=== PATIENT | female | born 1985 | race Caucasian/White ===

== ENCOUNTER 2017-06-11 17:30 | Inpatient (IN) | payer OTHER ==
[~2017-06-11] VITALS: Ht 165.1 cm; Wt 91.4 kg
--- NOTE | 2017-06-11 19:19 | HHI.HP ---
HPI Service Critical Care Medicine Primary Care Physician No Primary Care Physician Admission Diagnosis Diagnosis: (1) Fever Diagnosis: Principal (2) Cocaine abuse Diagnosis: Secondary (3) Tobacco abuse Diagnosis: Secondary (4) Abscess of lower back Diagnosis: Principal (5) IVDU (intravenous drug user) Diagnosis: Secondary (6) UTI (urinary tract infection) Diagnosis: Principal Travel History International Travel<30 Days: No Contact w/Intl Traveler <30 Da: No Traveled to Known Affected Are: No Sepsis Criteria SIRS Criteria (2 or more): Temp > 100.9 or < 96.8 Sepsis Criteria (SIRS+source): Infect source susp/known History of Present Illness 31 yo obese female with PMH of IVDU, prior tobacco abuse who is transferred from [facility] due to concern for epidural abscess. She states that about 6 months ago she began having back pain and had an abscess on her lower back. It continued to grow in size and become more painful so she sought medical attention in April 2017 where she was admitted for 4 weeks at [facility]. She states that she was bacteremic upon that admission and that "four different things grew out of my blood cultures". She states that there was an attempt to drain the abscess percutaneously in radiology but nothing was aspirated. (MRI report from [place] 04/29/17 states collection in subcutaneous fat posterior to spinous process of L1 measuring 2.4 cm in diameter. "It does not involve the spinous process or paraspinous musculature. This would be consistent with subcutaneous lesion within the fat". She states that the "aspiration needle" was sent for culture and "nothing grew out of that". She was hospitalized for 4 weeks and had a PICC line and was on vancomycin. She states PICC line was removed prior to discharge (however it was later discovered from outside hospital records that she eloped with PICC line in place and law enforcement was notified). She states since discharge she has been never really felt well and has had intermittent fevers. She states that about 5 days ago she was seen at [facility] and diagnosed with bacterial vaginosis and provided a prescription for Flagyl and possibly clindamycin. Four days ago she was began having difficulty with moving her legs and was requiring assistance from her to help her move her right leg and to go to the bathroom. She has had several episodes of urinary incontinence where she cannot feel the urge to urinate and cannot stop her urinary stream. No dysuria or flank pain. Denies fecal incontinence. She had a temperature of 103.6 yesterday. Per [place] records, she had left AMA and then presented again today with the above symptoms and has been transferred to [facility] [place] [place] for neurosurgical evaluation for possible epidural abscess. No labs or additional imaging sent from [place] aside from CXR. She denies headache, photophobia, neck pain or stiffness, n/v, diarrhea, CP, SOB. This history was obtained from the patient. Called [facility] for further information. U/a is abnormal. No recent urine cx at [place]. Requested additional records from [place] which indicated: Admitted 04/29/17 with suspected endocarditis and ?tricuspid valve lesion on TTE. Had MELANY 05/02 that was negative for vegetations. She had left AMA from several other hospitals that were treating her for endocarditis prior to that admission to [place]. Blood cultures + for MSSA treated initially with vanc, then with nafcillin. According to documentation of CT guided abscess aspiration, 1 cc of fluid was sent for culture. I do not see culture results in the paperwork I have so far. Patient was complaining of difficulty walking without assistance back in April as well. Review of Systems ROS Limitations: Other (not a reliable historian) Constitutional: COMPLAINS OF: Fever Musculoskeletal: COMPLAINS OF: Back pain, DENIES: Neck pain Neurologic: DENIES: Headache Past Family Social History Allergies: Coded Allergies: haloperidol (Verified Allergy, Severe, LOST MUSCLE CONTROL, 06/11/17) Past Medical History Hepatitis C bipolar disorder Past Surgical History section 2 Bilateral tubal ligation Percutaneous drainage of abscess in radiology in April 2017 removal of BB foreign body from foot in 2007 Reported Medications Flagyl ?Clindamycin... she is not sure. Started 1.5 days ago for "BV" Family History Mother with hypertension and "brain bleed" Father of complications of diabetes at unknown age Social History Prior history of IV drug use. She says she used to inject Dilaudid. She states she quit using IV drugs in April Prior UDS at [place] was positive for cocaine Quit smoking cigarettes 2 years ago after smoking for 12 years She used to drink alcohol but has not had a drink in about 6 years. She says she was never a daily drinker Physical Exam Physical Exam GENERAL: Well-nourished, well-developed patient who is laying in ISC bed in left lateral decubitus position. SKIN: Warm and dry. No rash HEAD: Atraumatic. Normocephalic. EYES: Pupils equal and round, 2 mm and reactive bilaterally.. No scleral icterus. No injection or drainage. ENT: No nasal bleeding or discharge. Mucous membranes pink and moist. NECK: Trachea midline. No JVD. CARDIOVASCULAR: Regular rate and rhythm. No murmurs rubs or gallops. RESPIRATORY: Breathing comfortably on room air with no accessory muscle use. Clear to auscultation. Breath sounds equal bilaterally. GASTROINTESTINAL: Abdomen soft, non-tender, nondistended. Bowel sounds present. MUSCULOSKELETAL: Extremities without clubbing, cyanosis, or edema. NEUROLOGICAL: There is palpable ~ 3cm mass to the right of approximately T12/L1 level. Skin is not erythematous, warm, fluctuant. Awake and alert, oriented.. No obvious cranial nerve deficits. She reports decreased sensation dorsum of right foot, overlying right tibia, and between 1sta and 2nd digit on the right foot. Intact sensation over thighs and torso. Strength 4/5 dorsiflexion of right first toe and dorsiflexion of right ankle. Does not cooperate with right ankle plantar flexion or hip flexion stating it is limited due to pain. Normal rectal tone. DTR 2+ patellar and achilles bilaterally. No abnormal response to Babinski. No clonus. Septic Shock Reassessment Septic shock perfusion: reassessment completed Caprini VTE Risk Assessment Caprini VTE Risk Assessment: Mod/High Risk (score >= 2) VTE Pharm Contraindication: Spinal surgery (possibly will require) Caprini Risk Assessment Model Point Value = 1 Point Value = 2 Point Value = 3 Point Value = 5 Age 41-60 Minor surgery BMI > 25 kg/m2 Swollen legs Varicose veins or History of unexplained or recurrent spontaneous Oral contraceptives or hormone replacement Sepsis (< 1 month) Serious lung disease, including pneumonia (< 1 month) Abnormal pulmonary function Acute myocardial infarction Congestive heart failure (< 1 month) History of inflammatory bowel disease Medical patient at bed rest Age 61-74 Arthroscopic surgery Major open surgery (> 45 min) Laparoscopic surgery (> 45 min) Malignancy Confined to bed (> 72 hours) Immobilizing plaster cast Central venous access Age >= 75 History of VTE Family history of VTE Factor V Leiden Prothrombin [id number] Lupus anticoagulant Anticardiolipin antibodies Elevated serum homocysteine Heparin-induced thrombocytopenia Other congenital or acquired thrombophilia Stroke (< 1 month) Elective arthroplasty Hip, pelvis, or leg fracture Acute spinal cord injury (< 1 month) Prophylaxis Regimen Total Risk Factor Score Risk Level Prophylaxis Regimen 0-1 Low Early ambulation 2 Moderate Order ONE of the following: *Sequential Compression Device (SCD) *Heparin 5000 units SQ BID 3-4 Higher Order ONE of the following medications: *Heparin 5000 units SQ TID *Enoxaparin/Lovenox 40 mg SQ daily (WT < 150 kg, CrCl > 30 mL/min) *Enoxaparin/Lovenox 30 mg SQ daily (WT < 150 kg, CrCl > 10-29 mL/min) *Enoxaparin/Lovenox 30 mg SQ BID (WT < 150 kg, CrCl > 30 mL/min) AND/OR *Sequential Compression Device (SCD) 5 or more Highest Order ONE of the following medications: *Heparin 5000 units SQ TID (Preferred with Epidurals) *Enoxaparin/Lovenox 40 mg SQ daily (WT < 150 kg, CrCl > 30 mL/min) *Enoxaparin/Lovenox 30 mg SQ daily (WT < 150 kg, CrCl > 10-29 mL/min) *Enoxaparin/Lovenox 30 mg SQ BID (WT < 150 kg, CrCl > 30 mL/min) AND *Sequential Compression Device (SCD) Assessment and Plan Problem List: (1) IVDU (intravenous drug user) ICD Code: F19.90 - Other psychoactive substance use, unspecified, uncomplicated Status: Chronic (2) Cocaine abuse ICD Code: F14.10 - Cocaine abuse, uncomplicated Status: Chronic (3) Abscess of lower back ICD Code: L02.212 - Cutaneous abscess of back [any part, except buttock] Status: Chronic (4) Fever ICD Code: R50.9 - Fever, unspecified Status: Acute (5) Tobacco abuse ICD Code: Z72.0 - Tobacco use Status: Chronic (6) UTI (urinary tract infection) ICD Code: N39.0 - Urinary tract infection, site not specified Status: Acute (7) Hypokalemia ICD Code: E87.6 - Hypokalemia Status: Acute Assessment and Plan NEURO: IVDU Cocaine abuse Abscess, subcutaneous, posterior to L1 Oxycodone/Dilaudid as needed for pain Stat MRI of Spine was obtained to evaluate for epidural abscess in view of apparent weakness on examination. MRI demonstrates enhancing collection or mass posterior to L1 without extension into the vertebra or epidural space. The location of the abscess does not explain her reported weakness and could be related to functional disorder. Neurosurgery to see for possible I and D versus reattempt percutaneous aspiration. RESP: Tobacco abuse Cessation counseling Albuterol every 2 hours as needed CV: Reported prior concern for tricuspid valve endocarditis. prior MELANY 05/02 was negative for vegetation Obtain 2D Echo GI: NPO FEN/RENAL: Hypokalemia Voiding. Urinary incontinence - likely secondary to UTI ID: ?UTI Empiric antibiotics were initiated on admission with cefepime and vancomycin due to concern for epidural abscess. U/a abnormal, urine culture pending. Infectious disease consultation. HEME: Obtain CBC. ENDO: Obtain BMP PROPH: SCDs and teds for DVT prophylaxis. Avoided pharmacologic DVT prophylaxis on admission due to w/u for possible epidural abscess and possible need for surgery. ACCESS: PIV currently. Would avoid invasive lines if at all possible. Full code Level 3 H&P Trina Prescott MD June 11, 2017 19:19
[2017-06-11] MEDS ORDERED: CHLORHEXIDINE GLUCONATE 2 % 1 PACK (2 CLOTHS) TOP PRN (19:45)
[2017-06-11] MEDS ORDERED: LACTULOSE SYRUP 20 GM/30 ML CUP PO PRN (19:45)
[2017-06-11] MEDS ORDERED: SODIUM CHLORIDE 0.9% FLUSH 10 ML FLUSH IV FLUSH PRN (19:45)
[2017-06-11] MEDS ORDERED: NURSING INFORMATION XX SCH (19:45)
[2017-06-11] MEDS ORDERED: MAGNESIUM HYDROXIDE SUSP 30 ML CUP PO PRN (19:45)
[2017-06-11] MEDS ORDERED: BISACODYL 10 MG SUPP RECTAL PRN (19:45)
[2017-06-11] MEDS ORDERED: ONDANSETRON HCL 4 MG/2 ML VIAL IV PUSH PRN (19:45)
[2017-06-11] MEDS ORDERED: oxyCODONE/ACETAMINOPHEN 5 MG/325 MG TAB PO PRN (19:45)
[2017-06-11] MEDS ORDERED: HYDROmorphone HCL PF 1 MG/ML VIAL IV PUSH PRN ×2 (19:45)
[2017-06-11] MEDS ORDERED: SENNOSIDES 8.6 MG TAB PO PRN (19:45)
[2017-06-11 20:00] VITALS: BP 101/58; PULSE 66; RESP 26; TEMP 99; O2SAT 99
[2017-06-11] MEDS: HYDROmorphone HCL PF 2 MG/ML VIAL IV PRN ×2 (20:04→23:10)
[2017-06-11] MEDS ORDERED: Vancomycin Consult Pharmacy 1 EA OTHER SCH (20:30)
[2017-06-11 20:45] LABS: BACTERIA, URINE RARE /hpf; BILIRUBIN, URINE NEG (NEG); BLOOD, URINE NEG (NEG); GLUCOSE,URINE NEG (NEG); KETONE, URINE TRACE mg/dL (NEG); NITRITE,URINE POS (NEG); PH, URINE 7.5 (5.0-8.5); SQUAMOUS EPITHELIAL CELL URINE 6 /hpf (0-5); URINE COLOR LIGHT-YELLOW (YELLW/STRAW); URINE LEUKOCYTE ESTERASE LARGE (NEG)
[2017-06-11] MEDS: DOCUSATE SODIUM 50 MG/SENNA 8.6 MG TAB PO SCH (21:00)
[2017-06-11] MEDS: SODIUM CHLORIDE 0.9% FLUSH 10 ML FLUSH IV FLUSH SCH (21:00)
[2017-06-11] MEDS: FAMOTIDINE 20 MG TAB PO SCH (21:00)
[2017-06-11] MEDS ORDERED: GADODIAMIDE PF 287 MG/ML 20 ML VIAL (for RAD MRI) IVCONTRAST ONE (21:45)
[2017-06-11 22:00] VITALS: PULSE 66
[2017-06-11] MEDS: CEFEPIME INJ 2,000 MG in SODIUM CHLORIDE 0.9% INJ 100 ML IV SCH (22:00)
[2017-06-11] MEDS ORDERED: VANCOMYCIN INJ 2,000 MG in SODIUM CHLORID 0.9% 500 ML INJ 500 ML IV ONE (22:00)
--- NOTE | 2017-06-11 22:10 | RADRPT ---
EXAM DATE/TIME: 06/11/2017 20:58 [facility] COMPARISON: No previous studies available for comparison. INDICATIONS : Abscess. CONTRAST: 18 cc Omniscan (gadodiamide) IV MEDICAL HISTORY : Seizures. Myocardial infarction. Endocarditis. SURGICAL HISTORY : Tubal ligation. section. ENCOUNTER: Initial ACUITY: 4-6 days PAIN SCORE: 6/10 LOCATION: Par[facility]inal TECHNIQUE: Multiplanar multisequence MRI of the thoracic spine was performed. FINDINGS: VERTEBRA: Normal vertebral body height. Homogeneous marrow signal. ALIGNMENT: Normal. CORD: Normal position and configuration. POST CONTRAST: There is a small enhancing collection or mass directly posterior to the spinous process of L1 within the deep subcutaneous tissues measuring 2.2 x 2.2 x 3.0 cm. T1-T2: Normal. T2-T3: The thecal sac has a normal diameter. No evidence of disc bulge or protrusion. T3-T4: The thecal sac has a normal diameter. No evidence of disc bulge or protrusion. T4-T5: The thecal sac has a normal diameter. No evidence of disc bulge or protrusion. T5-T6: The thecal sac has a normal diameter. No evidence of disc bulge or protrusion. T6-T7: The thecal sac has a normal diameter. No evidence of disc bulge or protrusion. T7-T8: The thecal sac has a normal diameter. No evidence of disc bulge or protrusion. T8-T9: The thecal sac has a normal diameter. No evidence of disc bulge or protrusion. T9-T10: The thecal sac has a normal diameter. No evidence of disc bulge or protrusion. T10-T11: The thecal sac has a normal diameter. No evidence of disc bulge or protrusion. T11-T12: The thecal sac has a normal diameter. No evidence of disc bulge or protrusion. T12-L1: The thecal sac has a normal diameter. No evidence of disc bulge or protrusion. CONCLUSION: Small enhancing collection or mass directly posterior to the spinous process of L1 within the deep galicia bcutaneous tissues measuring 2.2 x 2.2 x 3.0 cm. Robel Gregorio MD on June 11, 2017 at 22:00 Board Certified Radiologist. This report was verified electronically.
--- NOTE | 2017-06-11 23:14 | RADRPT ---
EXAM DATE/TIME: 06/11/2017 20:58 [facility] COMPARISON: No previous studies available for comparison. INDICATIONS : Abscess. CONTRAST: 18 cc Omniscan (gadodiamide) IV MEDICAL HISTORY : Seizures. Myocardial infarction. Endocarditis. SURGICAL HISTORY : Tubal ligation. section. ENCOUNTER: Initial ACUITY: 4-6 days PAIN SCORE: 6/10 LOCATION: Paraspinal TECHNIQUE: Multiplanar multisequence MRI of the lumbar spine was performed with and without contrast. FINDINGS: The most caudal appearing lumbar vertebra is numbered as L5. VERTEBRAE: Homogeneous signal. Normal alignment. CONUS: Normal level and configuration. POST CONTRAST: There is a small enhancing collection or mass directly posterior to the spinous process of L1 within the deep subcutaneous tissues measuring 2.2 x 2.2 x 2.0 cm. T12-L1: The thecal sac has a normal diameter. No evidence of disc bulge or protrusion. The neural foramina are patent bilaterally. L1-L2: The thecal sac has a normal diameter. No evidence of disc bulge or protrusion. The neural foramina are patent bilaterally. L2-L3: The thecal sac has a normal diameter. No evidence of disc bulge or protrusion. The neural foramina are patent bilaterally. L3-L4: The thecal sac has a normal diameter. No evidence of disc bulge or protrusion. The neural foramina are patent bilaterally. L4-L5: The thecal sac has a normal diameter. No evidence of disc bulge or protrusion. The neural foramina are patent bilaterally. L5-L6: Loss of disc height and signal are noted. Diffuse disc osteophyte complex and facet joint hypertrophy are noted resulting in moderate bilateral foraminal narrowing but no spinal stenosis. No focal disc herniation is noted. L6-S1: Loss of disc height and signal are noted. No spinal stenosis or neuroforaminal narrowing is noted. No focal disc herniation is noted. CONCLUSION: 1. Small enhancing collection or mass directly posterior to the spinous process of L1 within the deep subcutaneous tissues measuring 2.2 x 2.2 x 2.0 cm. 2. Moderate bilateral foraminal narrowing at L5-L6. 3. Degenerative disc disease L5-L6 and L6-S1. Robel Gregorio MD on June 11, 2017 at 23:07 Board Certified Radiologist. This report was verified electronically.
--- NOTE | 2017-06-11 23:17 | RADRPT ---
EXAM DATE/TIME: 06/11/2017 20:58 [facility] COMPARISON: No previous studies available for comparison. INDICATIONS : Abscess. CONTRAST: 18 cc Omniscan (gadodiamide) IV MEDICAL HISTORY : Myocardial infarction. Seizures. Endocarditis. SURGICAL HISTORY : Tubal ligation. section. ENCOUNTER: Initial ACUITY: 4-6 days PAIN SCORE: 6/10 LOCATION: Paraspinal TECHNIQUE: Multiplanar, multisequence MRI examination of the cervical spine was performed. FINDINGS: VERTEBRAE: Normal vertebral body height. Homogeneous marrow signal. ALIGNMENT: No evidence of subluxation. CORD: Normal configuration and signal. POST FOSSA: The cerebellar tonsils are normal in position. POST-CONTRAST: No abnormal areas of enhancement are seen. C2-C3: The thecal sac has a normal configuration. There is no evidence of disc herniation or spinal canal stenosis. The neural foramina are patent bilaterally. C3-C4: The thecal sac has a normal configuration. There is no evidence of disc herniation or spinal canal s tenosis. The neural foramina are patent bilaterally. C4-C5: Very minimal diffuse disc bulge is noted but results in no spinal stenosis or neural foraminal narrow ing. C5-C6: Very minimal diffuse disc bulge is noted but results in no spinal stenosis or neural foraminal narrow ing. C6-C7: Very minimal diffuse disc bulge is noted but results in no spinal stenosis or neural foraminal narrow ing. C7-T1: The thecal sac has a normal configuration. There is no evidence of disc herniation or spinal canal s tenosis. The neural foramina are patent bilaterally. CONCLUSION: 1. No abnormal enhancing mass or collection within cervical spine. 2. Very minimal diffuse disc bulges at C4-5, C5-6 and C6-7. Robel Gregorio MD on June 11, 2017 at 23:13 Board Certified Radiologist. This report was verified electronically.
[2017-06-12] VITALS (11 sets, daily range): BP systolic 84–101; BP diastolic 52–65; PULSE 51–82; RESP 16–24; TEMP 97.5–99; O2SAT 97–100
[2017-06-12] MEDS: CHLORHEXIDINE GLUCONATE 2 % 1 PACK (2 CLOTHS) TOP SCH ×2 (04:00→19:50)
[2017-06-12] MEDS: HYDROmorphone HCL PF 2 MG/ML VIAL IV PRN ×4 (04:26→13:50)
[2017-06-12] MEDS: CEFEPIME INJ 2,000 MG in SODIUM CHLORIDE 0.9% INJ 100 ML IV SCH ×2 (06:00→13:51)
--- NOTE | 2017-06-12 07:22 | HHI.CCPN ---
Subjective Remarks/Hospital Course 31 yo obese female with PMH of IVDU, prior tobacco abuse who is transferred from [facility] due to concern for epidural abscess. She states that about 6 months ago she began having back pain and had an abscess on her lower back. It continued to grow in size and become more painful so she sought medical attention in April 2017 where she was admitted for 4 weeks at [facility]. She states that she was bacteremic upon that admission and that "four different things grew out of my blood cultures". She states that there was an attempt to drain the abscess percutaneously in radiology but nothing was aspirated. (MRI report from [place] 04/29/17 states collection in subcutaneous fat posterior to spinous process of L1 measuring 2.4 cm in diameter. "It does not involve the spinous process or paraspinous musculature. This would be consistent with subcutaneous lesion within the fat". She states that the "aspiration needle" was sent for culture and "nothing grew out of that". She was hospitalized for 4 weeks and had a PICC line and was on vancomycin. She states PICC line was removed prior to discharge (however it was later discovered from outside hospital records that she eloped with PICC line in place and law enforcement was notified). She states since discharge she has been never really felt well and has had intermittent fevers. She states that about 5 days ago she was seen at [facility] and diagnosed with bacterial vaginosis and provided a prescription for Flagyl and possibly clindamycin. Four days ago she was began having difficulty with moving her legs and was requiring assistance from her to help her move her right leg and to go to the bathroom. She has had several episodes of urinary incontinence where she cannot feel the urge to urinate and cannot stop her urinary stream. No dysuria or flank pain. Denies fecal incontinence. She had a temperature of 103.6 yesterday. Per [place] records, she had left AMA and then presented again today (06/11/17) with the above symptoms and has been transferred to [facility] for neurosurgical evaluation for possible epidural abscess. No labs or additional imaging sent from [place] aside from CXR. She denies headache, photophobia, neck pain or stiffness, n/v, diarrhea, CP, SOB. This history was obtained from the patient. Called [facility] for further information. U/a is abnormal. No recent urine cx at [place]. Requested additional records from [place] which indicated: Admitted 04/29/17 with suspected endocarditis and ?tricuspid valve lesion on TTE. Had MELANY 05/02 that was negative for vegetations. She had left AMA from several other hospitals that were treating her for endocarditis prior to that admission to [place]. Blood cultures + for MSSA treated initially with vanc, then with nafcillin. According to documentation of CT guided abscess aspiration, 1 cc of fluid was sent for culture. I do not see culture results in the paperwork I have so far. Patient was complaining of difficulty walking without assistance back in April as well. 06/13: Still complaining of significant lumbar pain. Continues to have difficulty with lower extremity muscle strength. 4/5 power. MRI of the spine shows small enhancing collection or mass directly posterior to the spinous process of L1 within the deep subcutaneous tissue (2.2 x 2.2 x 2.0 cm) Moderate bilateral foraminal narrowing at L5-L6. Degenerative disc disease L5-L6 and L6- S1. Neurosurgery had been consulted and, recommendations are pending at this time Objective Vital Signs Date Time Temp Pulse Resp B/P (MAP) Pulse Ox O2 Delivery O2 Flow Rate FiO2 06/12/17 06:00 60 06/12/17 04:00 98.6 18 101/56 (71) 99 06/11/17 20:00 Room Air Intake and Output 06/12/17 06/12/17 06/13/17 08:00 16:00 00:00 Intake Total 240 ml Balance 240 ml Objective Remarks GENERAL: Well-nourished, well-developed patient who is laying in ISC bed in no acute distress SKIN: Warm and dry. No rash HEAD: Atraumatic. Normocephalic. EYES: Pupils equal and round, 2 mm and reactive bilaterally.. No scleral icterus. No injection or drainage. ENT: No nasal bleeding or discharge. NECK: Trachea midline. No JVD. CARDIOVASCULAR: Regular rate and rhythm. No murmurs rubs or gallops. RESPIRATORY: Breathing comfortably on room air with no accessory muscle use. Clear to auscultation. Breath sounds equal bilaterally. GASTROINTESTINAL: Abdomen soft, non-tender, nondistended. Bowel sounds present. MUSCULOSKELETAL: Extremities without clubbing, cyanosis, or edema. NEUROLOGICAL: Palpable ~ 3cm mass to the right of approximately T12/L1 level. Skin is not erythematous, warm, fluctuant. Awake and alert, oriented.. No obvious cranial nerve deficits. Decreased sensation dorsum of right foot, overlying right tibia, and between 1sta and 2nd digit on the right foot. Intact sensation over thighs and torso. Strength 4/5 dorsiflexion of right first toe and dorsiflexion of right ankle. Does not cooperate with right ankle plantar flexion or hip flexion stating it is limited due to pain. DTR 2+ patellar and achilles bilaterally. No abnormal response to Babinski. No clonus. Normal rectal tone per Dr. Prescott exam A/P Assessment and Plan Assessment and Plan NEURO: IVDU Cocaine abuse Possible mass vs fluid collection, subcutaneous, posterior to L1 Oxycodone/Dilaudid as needed for pain MRI of Spine demonstrates enhancing collection or mass posterior to L1 without extension into the vertebra or epidural space. The location of the abscess does not explain her reported weakness and could be related to functional disorder. Neurosurgery to see for possible I and D versus reattempt percutaneous aspiration. Dr. Monge recommends IR core biopsy vs excision by general surgery. IR consulted Await ID input Consult neurology, D/W Dr. Mendoza. RESP: Tobacco abuse Cessation counseling Albuterol every 2 hours as needed CV: Reported prior concern for tricuspid valve endocarditis. prior MELANY 05/02 was negative for vegetation Obtain 2D Echo Bedside Echo no obvious vegetation GI: NPO, start regular dist FEN/RENAL: Voiding. ID: Empiric antibiotics were initiated on admission with cefepime and vancomycin due to concern for epidural abscess. Infectious disease consultation. HEME: Obtain CBC. ENDO: Obtain BMP PROPH: SCDs and teds for DVT prophylaxis. Avoided pharmacologic DVT prophylaxis on admission due to w/u for possible epidural abscess and possible need for surgery/biopsy. ACCESS: PIV currently. Would avoid invasive lines if at all possible. Full code Level 2 Josefina Millan MD June 12, 2017 07:22
[2017-06-12] MEDS ORDERED: RESP: ALBUTEROL 2.5 MG/3 ML NEB (PRN) NEB (08:45)
[2017-06-12 09:02] LABS: AUTOMATED NEUTROPHIL # 3.1 TH/MM3 (1.8-7.7); BASOPHIL # 0.1 TH/MM3 (0-0.2); BASOPHIL % 1.1 % (0.0-2.0); EOSINOPHIL # 0.5 TH/MM3 (0-0.4); EOSINOPHIL % 7.8 % (0.0-4.0); HEMATOCRIT 26.2 % (35.0-46.0); HEMOGLOBIN 8.3 GM/DL (11.6-15.3); LYMPH % 31.8 % (9.0-44.0); LYMPHOCYTE # 1.9 TH/MM3 (1.0-4.8); MEAN CORPUSCULAR HEMOGLOBIN 22.8 PG (27.0-34.0); MEAN CORPUSCULAR HGB CONC 31.7 % (32.0-36.0); MEAN PLATELET VOLUME 7.1 FL (7.0-11.0); MONO % 7.6 % (0.0-8.0); MONOCYTE # 0.5 TH/MM3 (0-0.9); NEUT % 51.7 % (16.0-70.0); PLATELET COUNT 294 TH/MM3 (150-450); RED BLOOD COUNT 3.63 MIL/MM3 (4.00-5.30); RED CELL DISTRIBUTION WIDTH 22.8 % (11.6-17.2); WHITE BLOOD COUNT 6.1 TH/MM3 (4.0-11.0)
[2017-06-12] MEDS: FAMOTIDINE 20 MG TAB PO SCH ×2 (09:13→19:50)
[2017-06-12] MEDS: DOCUSATE SODIUM 50 MG/SENNA 8.6 MG TAB PO SCH ×2 (09:13→19:48)
[2017-06-12] MEDS: SODIUM CHLORIDE 0.9% FLUSH 10 ML FLUSH IV FLUSH SCH ×2 (09:14→19:51)
[2017-06-12 09:23] LABS: ALBUMIN 2.4 GM/DL (3.4-5.0); AST (GOT) 10 U/L (15-37); BICARBONATE 22.2 MEQ/L (21.0-32.0); BLOOD UREA NITROGEN 10 MG/DL (7-18); CALCIUM 8.2 MG/DL (8.5-10.1); CHLORIDE 110 MEQ/L (98-107); CREATININE 0.58 MG/DL (0.50-1.00); GLOMERULAR FILTRATION RATE 123 ML/MIN (>89); GLUCOSE,RANDOM 75 MG/DL (74-106); SODIUM (NA) 142 MEQ/L (136-145)
[2017-06-12 09:24] LABS: ALT (GPT) 16 U/L (10-53)
[2017-06-12 09:28] LABS: ALKALINE PHOSPHATASE 41 U/L (45-117); TOTAL BILIRUBIN ADULT 0.4 MG/DL (0.2-1.0)
--- NOTE | 2017-06-12 10:08 | PD.CONS ---
History of Present Illness Consult Requested By Flight Tower Dispatcher Reason for Consult Lumbar subcutaneous soft tissue mass Primary Care Physician No Primary Care Physician Diagnoses: History of Present Illness 31-year-old obese female transferred from [facility] for evaluation possible epidural abscess with MRI scan of the complete spine [facility] not revealing any epidural abscess or spinal stenosis. She has a enhancing mass in the lumbar subcutaneous soft tissue not involving the spine. This reportedly was attempted to be drained last month to the facility without success. She complains of weakness in the legs and urinary incontinence for the past week. Also complains of some numbness in the hands and feet. Review of Systems ROS Limitations: Uncooperative, Poor Historian Genitourinary: COMPLAINS OF: Urinary incontinence Musculoskeletal: COMPLAINS OF: Back pain Neurologic: COMPLAINS OF: Localized weakness Except as stated in HPI: all other systems reviewed are Neg Past Family Social History Allergies: Coded Allergies: haloperidol (Verified Allergy, Severe, LOST MUSCLE CONTROL, 06/11/17) Past Medical History Hepatitis C bipolar disorder Past Surgical History section 2 Bilateral tubal ligation Lumbar soft tissue mass attempted drainage by radiology Active Ordered Medications Current Medications Medications (Trade) Dose Ordered Sig/Tiny Route PRN Reason Start Time Stop Time Status Last Admin Dose Admin Sodium Chloride (NS Flush) 2 ml UNSCH PRN IV FLUSH FLUSH AFTER USING IV ACCESS 06/11/17 19:45 Sodium Chloride (NS Flush) 2 ml BID IV FLUSH 06/11/17 21:00 06/12/17 09:14 Oxycodone/ Acetaminophen (Percocet 5-325 Mg) 1 tab Q4H PRN PO PAIN SCALE 1 TO 5 06/11/17 19:45 Famotidine (Pepcid) 20 mg Q12HR PO 06/11/17 21:00 06/12/17 09:13 Ondansetron HCl (Zofran Inj) 4 mg Q6H PRN IV PUSH NAUSEA OR VOMITING 06/11/17 19:45 Miscellaneous Information ([facility] [place] [place] Nursing Information) 1 [id number] XX 06/11/17 19:45 06/12/17 00:06 Chlorhexidine Gluconate (Chlorhexidine 2% Cloth) 3 pack Taper DAILY@04 TOP 06/12/17 04:00 06/08/18 03:59 Chlorhexidine Gluconate (Chlorhexidine 2% Cloth) 3 pack UNSCH PRN TOP HYGIENIC CARE 06/11/17 19:45 Senna/Docusate Sodium (Leela-Colace) 1 tab BID PO 06/11/17 21:00 06/12/17 09:13 Magnesium Hydroxide (Milk Of Magnesia Liq) 30 ml Q12H PRN PO Mild constipation 06/11/17 19:45 Sennosides (Senokot) 17.2 mg Q12H PRN PO Moderate constipation 06/11/17 19:45 Bisacodyl (Dulcolax Supp) 10 mg DAILY PRN RECTAL SEVERE CONSITIPATION 06/11/17 19:45 Lactulose (Lactulose Liq) 30 ml DAILY PRN PO SEVERE CONSITIPATION 06/11/17 19:45 Hydromorphone HCl (Dilaudid Pf Inj) 1 mg Q3H PRN IV PAIN SCALE 6 TO 10 06/11/17 20:00 06/12/17 07:47 Cefepime HCl 2000 mg/Sodium Chloride 100 ml @ 200 mls/hr Q8H IV 06/11/17 22:00 06/12/17 06:00 Pharmacy Profile Note 0 ml @ 0 mls/hr UNSCH OTHER 06/11/17 20:30 UNV Lorazepam (Ativan Inj) 1 mg Q15M PRN IV PUSH ANXIETY 06/11/17 20:30 Albuterol Sulfate (Albuterol Neb) 2.5 mg Q2HR NEB PRN NEB WHEEZING 06/12/17 08:45 UNV Family History Hypertensive cerebral bleed mother, diabetes father Social History History of IV drug use and quit using IV drugs in April. Positive for cocaine Quit smoking cigarettes 2 years ago after smoking for 12 years She used to drink alcohol but has not had a drink in about 6 years. Physical Exam Vital Signs Vital Signs Date Time Temp Pulse Resp B/P (MAP) Pulse Ox O2 Delivery O2 Flow Rate FiO2 06/12/17 08:00 55 06/12/17 08:00 98.8 52 18 84/52 (63) 97 06/12/17 07:00 100 Room Air 06/12/17 06:00 60 06/12/17 04:00 98.6 69 18 101/56 (71) 99 06/12/17 04:00 51 06/12/17 02:00 66 06/12/17 00:00 69 06/12/17 00:00 99.0 69 18 98/54 (69) 97 06/11/17 22:00 66 06/11/17 20:00 100 Room Air 06/11/17 20:00 99.0 66 26 101/58 (72) 99 06/11/17 20:00 66 Physical Exam GENERAL: This is a well-nourished, well-developed obese patient, in no apparent distress. SKIN: No rashes, ecchymoses or lesions. Cool and dry. HEAD: Atraumatic. Normocephalic. No temporal or scalp tenderness. EYES: Pupils equal round and reactive. Extraocular motions intact. No scleral icterus. No injection or drainage. ENT: Nose without bleeding, purulent drainage or septal hematoma. Throat without erythema, tonsillar hypertrophy or exudate. Uvula midline. Airway patent. NECK: Trachea midline. No JVD or lymphadenopathy. Supple, nontender, no meningeal signs. CARDIOVASCULAR: Regular rate and rhythm without murmurs, gallops, or rubs. RESPIRATORY: Clear to auscultation. Breath sounds equal bilaterally. No wheezes , rales, or rhonchi. GASTROINTESTINAL: Abdomen soft, non-tender, nondistended. No hepato-splenomegaly , or palpable masses. No guarding. MUSCULOSKELETAL: Extremities without clubbing, cyanosis, or edema. No joint tenderness, effusion, or edema noted. No calf tenderness. Negative Homans sign bilaterally. No tenderness to palpation in the thoracic or lumbar posterior spine. No edema or erythema noted. NEUROLOGICAL: Awake and alert. Cranial nerves II through XII intact. Normal speech. She complains of numbness in the hands and feet and moves her upper extremities and wiggles her toes but will not give me a good effort for muscle strength evaluation. Negative Babinski. Laboratory Laboratory Tests Test 06/11/17 20:18 06/11/17 20:28 06/12/17 08:35 Nasal Screen MRSA (PCR) MRSA DETECTED Urine Color LIGHT-YELLOW Urine Turbidity HAZY Urine pH 7.5 Urine Specific [place] 1.004 Urine Protein NEG Urine Glucose (UA) NEG Urine Ketones TRACE Urine Occult Blood NEG Urine Nitrite POS Urine Bilirubin NEG Urine Urobilinogen LESS THAN 2.0 Urine Leukocyte Esterase LARGE Urine RBC 1 Urine WBC 14 Urine Squamous Epithelial Cells 6 Urine Bacteria RARE Microscopic Urinalysis Comment CULTURE INDICATED White Blood Count 6.1 Red Blood Count 3.63 Hemoglobin 8.3 Hematocrit 26.2 Mean Corpuscular Volume 72.0 Mean Corpuscular Hemoglobin 22.8 Mean Corpuscular Hemoglobin Concent 31.7 Red Cell Distribution Width 22.8 Platelet Count 294 Mean Platelet Volume 7.1 Neutrophils (%) (Auto) 51.7 Lymphocytes (%) (Auto) 31.8 Monocytes (%) (Auto) 7.6 Eosinophils (%) (Auto) 7.8 Basophils (%) (Auto) 1.1 Neutrophils # (Auto) 3.1 Lymphocytes # (Auto) 1.9 Monocytes # (Auto) 0.5 Eosinophils # (Auto) 0.5 Basophils # (Auto) 0.1 CBC Comment DIFF FINAL Differential Comment Blood Urea Nitrogen 10 Creatinine 0.58 Random Glucose 75 Total Protein 6.0 Albumin 2.4 Calcium Level 8.2 Alkaline Phosphatase 41 Aspartate Amino Transf (AST/SGOT) 10 Alanine Aminotransferase (ALT/SGPT) 16 Total Bilirubin 0.4 Sodium Level 142 Potassium Level 3.1 Chloride Level 110 Carbon Dioxide Level 22.2 Anion Gap 10 Estimat Glomerular Filtration Rate 123 Total Creatine Kinase 30 Human Chorionic Gonadotropin, Quant LESS THAN 1 Date/Time Source Procedure Growth Status 06/12/17 08:35 Blood Peripheral Aerobic Blood Culture Pending Received 06/12/17 08:35 Blood Peripheral Anaerobic Blood Culture Pending Received 06/11/17 20:28 Urine Clean Catch Urine Culture Pending Received Result Diagram: 06/12/17 0835 06/12/17 0835 Imaging Last Impressions Thoracic Spine MRI 06/11/17 0000 Signed Impressions: Service Date/Time: Sunday, June 11, 2017 20:58 - CONCLUSION: Small enhancing collection or mass directly posterior to the spinous process of L1 within the deep subcutaneous tissues measuring 2.2 x 2.2 x 3.0 cm. Robel Gregorio MD Lumbar Spine MRI 06/11/17 0000 Signed Impressions: Service Date/Time: Sunday, June 11, 2017 20:58 - CONCLUSION: 1. Small enhancing collection or mass directly posterior to the spinous process of L1 within the deep subcutaneous tissues measuring 2.2 x 2.2 x 2.0 cm. 2. Moderate bilateral foraminal narrowing at L5-L6. 3. Degenerative disc disease L5-L6 and L6-S1. Robel Gregorio MD Cervical Spine MRI 06/11/17 0000 Signed Impressions: Service Date/Time: Sunday, June 11, 2017 20:58 - CONCLUSION: 1. No abnormal enhancing mass or collection within cervical spine. 2. Very minimal diffuse disc bulges at C4-5, C5-6 and C6-7. Robel Gregorio MD Assessment and Plan Assessment and Plan 31-year-old lady transferred from [facility] reportedly for epidural abscess without any workup prior to transfer. She was found to have lumbar subcutaneous soft tissue mass last month and [facility] and was told that this was a mass and not an abscess and no drainage was noted. She complains of weakness in the legs and urinary incontinence for the past week. Complete cervical thoracic and lumbar spine MRI scan has been done and there is no stenosis. There is a lumbar soft tissue subcutaneous mass which enhances but this not involving the spine and obviously not the reason for current symptoms. She does not have any epidural abscess or indication for any neurosurgical intervention. The lumbar soft tissue subcutaneous mass can be addressed on an elective basis by a local general surgeon where she resides. Discussed with child welfare social worker Dr. Millan. Neurosurgery service will sign off. Chevy Monge MD June 12, 2017 10:08
[2017-06-12] MEDS ORDERED: MAGNESIUM OXIDE 400 MG TAB PO PRN (10:15)
[2017-06-12] MEDS ORDERED: POTASSIUM CHLOR 40 MEQ PREMIX 100 ML IV PRN ×2 (10:15)
[2017-06-12] MEDS ORDERED: POTASSIUM PHOSPHATE MONOBASIC 500 MG TAB PO/TUBE PRN (10:15)
[2017-06-12] MEDS ORDERED: MAGNESIUM SULFATE INJ 2 GM in SODIUM CHLORIDE 0.9% INJ 96 ML IV PRN (10:15)
[2017-06-12] MEDS ORDERED: POTASSIUM CHLOR 20 MEQ PREMIX 100 ML IV PRN ×2 (10:15)
[2017-06-12] MEDS ORDERED: POTASSIUM PHOSPHATE INJ 30 MMOL in SODIUM CHLOR 0.9% 250 ML INJ 250 ML IV PRN (10:15)
[2017-06-12] MEDS ORDERED: POTASSIUM PHOSPHATE MONOBASIC 500 MG TAB PO PRN (10:15)
[2017-06-12] MEDS ORDERED: POTASSIUM CHLORIDE 25 MEQ EFFERVESCENT TAB PO PRN (10:15)
[2017-06-12] MEDS ORDERED: MAGNESIUM SULFATE INJ 4 GM in SODIUM CHLORIDE 0.9% INJ 92 ML IV PRN (10:15)
[2017-06-12] MEDS ORDERED: SODIUM PHOSPHATE INJ 30 MMOL in SODIUM CHLOR 0.9% 250 ML INJ 240 ML IV PRN (10:15)
[2017-06-12 11:25] LABS: PHOSPHORUS 2.7 MG/DL (2.5-4.9)
[2017-06-12] MEDS ORDERED: POTASSIUM CHLORIDE 25 MEQ EFFERVESCENT TAB PO ONE (11:30)
--- NOTE | 2017-06-12 12:07 | EKG ---
Date Performed: 06/11/2017 Time Performed: 22:38:10 PTAGE: 31 years EKG: SINUS BRADYCARDIA LOW QRS VOLTAGE IN PRECORDIAL LEADS BORDERLINE ECG NO PREVIOUS TRACING DOCTOR: Gregorio Calabrese Interpretating Date/Time 06/12/2017 12:05:16
--- NOTE | 2017-06-12 12:38 | MB ---
cc: Jose Mendoza MD DATE: 06/12/2017 HISTORY OF PRESENT ILLNESS: A 31-year-old right-handed woman without significant past medical history who has had some low back pain, evidently a mass in her high lumbar region. It was a solid mass. This caused her a lot of pain. She feels like she cannot move her legs well. She has had some urinary incontinence. She is an IV drug abuser. REVIEW OF SYSTEMS: Denies any hypertension, diabetes, hypercholesterolemia, MA, CABG, cardiac arrhythmia, AFib, Coumadin, renal, hepatic or pulmonary disease, thyroid disease, lupus, ulcer, cancer, seizure, stroke, or valve infection. SOCIAL HISTORY: She is not a smoker or drinker, quit using in April. Lives with her . FAMILY HISTORY: Negative for cancer, seizure, stroke. MEDICATIONS: Evidently on some chronic pain medications. Curent medications: She is on some potassium, magnesium, cefepime. She had gotten some vancomycin, p.r.n. Ativan, Dilaudid PHYSICAL EXAMINATION: VITAL SIGNS: Afebrile, 84/52-101/56, 55. NEUROLOGIC: Pupils are equal. Visual hand are full. Extraocular movements intact without nystagmus. Face is symmetric with normal sensation. Tongue was midline. There was no drift. She had normal strength in upper extremities bilaterally including deltoid, tricep, bicep, finger extensors, FDI. She had normal strength best testing in bilateral lower extremities, including iliopsoas, hamstring, quad, tibialis anterior, foot inversion, eversion, toe extensors and flexors. She is able to stand on her toes well. DTRs are 1 plus in the upper and lower extremities, 2 plus and symmetric at the knees. Toes are downgoing bilaterally. DTRs are 2+ symmetric at the ankles. There is no ankle clonus. Pinprick is intact throughout bilateral lower extremities entirely and bilateral upper extremities and face, and there is no pin level on her back or her front and abdomen region. Pinprick perianally and paravaginally was normal bilaterally. She is not ataxic on [id number]. She is able to get out of bed with minimal assist and she can walk well. GENERAL: She is somewhat obese. LABORATORY DATA: UA had a large amount of leukocyte esterase. Basic metabolic profile: Potassium was 3.1, otherwise normal. LFTs are normal. Albumin is 2.4, total protein 6. HCG was negative. CBC: She is anemic with hematocrit of 26. IMAGING: MRI of the cervical, thoracic and lumbosacral spine all look normal. Spinal cord is normal, done with and without contrast. There is that extraspinous mass in the subcutaneous tissues about 2 cm, which enhances. IMPRESSION: The neurological exam is normal. Her appearance of weakness in the legs really is just due to the pain from her back. I will defer to the med team on that, but there is no evidence for any neurological involvement of the muscles, nerves or spinal cord on her exam, which is entirely normal today. We did get her up and walk her, and got her into the bathroom. I just ordered a couple of labs that the med team could follow up, including a sed rate. MD MARBELLA Llanos/MITCHELL , 11:43 AM , 12:37 PM
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
[2017-06-12] MEDS ORDERED: PILL SPLITTER OTHER PRN (15:15)
[2017-06-12] MEDS ORDERED: cefTRIAXone INJ 1,000 MG in SODIUM CHLORIDE 0.9% INJ 100 ML IV SCH (16:00)
[2017-06-12] MEDS ORDERED: POTASSIUM CHLORIDE 10 MEQ CONTROLLED RELEASE TAB PO ONE (16:15)
[2017-06-12 16:52] LABS: IRON (FE) 18 MCG/DL (50-170)
[2017-06-12 17:17] LABS: % SATURATION IRON PROFILE 5.7 % (20-50); C-REACTIVE PROTEIN 5.76 MG/DL (0.00-0.30); FREE T4 1.19 NG/DL (0.76-1.46); TOTAL IRON BINDING CAPACITY 314 MCG/DL (250-450)
[2017-06-12] MEDS: HYDROmorphone HCL 2 MG TAB PO PRN ×2 (18:00→23:10)
[2017-06-12] MEDS: LORazepam 2 MG/ML VIAL IV PUSH PRN (19:52)
[2017-06-13] VITALS: BP 92/58; PULSE 68; RESP 16; TEMP 97.2; O2SAT 100
[2017-06-13] MEDS: HYDROmorphone HCL 2 MG TAB PO PRN ×6 (04:27→23:02)
[2017-06-13] MEDS: CHLORHEXIDINE GLUCONATE 2 % 1 PACK (2 CLOTHS) TOP SCH (07:46)
[2017-06-13 08:00] VITALS: BP 92/50; PULSE 57; RESP 17; TEMP 97.4; O2SAT 96
[2017-06-13] MEDS: FAMOTIDINE 20 MG TAB PO SCH ×2 (09:00→21:59)
[2017-06-13] MEDS: DOCUSATE SODIUM 50 MG/SENNA 8.6 MG TAB PO SCH ×2 (09:00→21:59)
[2017-06-13] MEDS: LORazepam 2 MG/ML VIAL IV PUSH PRN (09:22)
--- NOTE | 2017-06-13 11:38 | HHI.IDPN ---
Subjective Subjective Remarks Patient seen and examined on behalf of Dr. Cali is a 31-year-old female with past medical history significant for IV drug abuse. Patient reports that she was recently admitted [facility] for approximately 4 weeks where she was treated for self- reported history of endocarditis as well as discitis/epidural abscess. Patient admits to doing intravenous drugs just prior to this diagnosis. She reports she was bacteremic during that admission at [facility] in 4 different organisms grew from her blood cultures. Patient self reports that there was an attempt to drain the abscess percutaneously in radiology but nothing was aspirated. Records from [facility] are unavailable to me at the present time. She was hospitalized for 4 weeks and had a PICC line and was on vancomycin. She states PICC line was removed prior to discharge (however it was later discovered from outside hospital records that she eloped with PICC line in place and law enforcement was notified, per review of medical records.) . She states since discharge she has been never really felt well and has had intermittent fevers. She states that about 5 days ago she was seen at [facility] and diagnosed with bacterial vaginosis and provided a prescription for Flagyl and possibly clindamycin. Four days ago she was began having difficulty with moving her legs and was requiring assistance from her to help her move her right leg and to go to the bathroom. She has had several episodes of urinary incontinence where she cannot feel the urge to urinate and cannot stop her urinary stream. No dysuria or flank pain. Denies fecal incontinence. She had a temperature of 103.6 F. Per [facility] records, she had left AMA and then presented again today with the above symptoms and has been transferred to [facility] for neurosurgical evaluation for possible epidural abscess. No labs or additional imaging sent from [facility] aside from CXR. She denies headache, photophobia, neck pain or stiffness, n/v, diarrhea, CP, SOB. This history was obtained from the patient. Called [facility] for further information. U/a is abnormal. No recent urine cx [facility]. Per review of research librarian note records of [facility] were reviewed and following his information: Admitted 04/29/17 with suspected endocarditis and ?tricuspid valve lesion on TTE. Had MELANY 05/02 that was negative for vegetations. She had left AMA from several other hospitals that were treating her for endocarditis prior to that admission to [facility]. Blood cultures + for MSSA treated initially with vanc, then with nafcillin. According to documentation of CT guided abscess aspiration, 1 cc of fluid was sent for culture. Patient was complaining of difficulty walking without assistance back in April as well. Infectious disease was consulted for evaluation and management of possible discitis and the patient recently treated for endocarditis and discitis. Overnight notes noted Notes reviewed Reviewed medical records from [facility] patient is very lethargic having been given Ativan for upcoming IR procedure patient states no change from yesterday and states "everything is the same" she feels certain today's IR procedure will be of no benefit she complains of back and BLE pain she reports dysuria no fever no rash no N/V no diarrhea afebrile WBC WNL BCX with no growth x 1 day UCX + GNR Antibiotics No antibiotics Current Medications Medications (Trade) Dose Ordered Sig/Tiny Route Start Time Stop Time Status Last Admin (NS Flush) 2 ml UNSCH PRN IV FLUSH 06/11/17 19:45 06/12/17 23:06 (NS Flush) 2 ml BID IV FLUSH 06/11/17 21:00 06/12/17 19:51 (Percocet 5-325 Mg) 1 tab Q4H PRN PO 06/11/17 19:45 06/12/17 12:44 (Pepcid) 20 mg Q12HR PO 06/11/17 21:00 06/12/17 09:13 (Zofran Inj) 4 mg Q6H PRN IV PUSH 06/11/17 19:45 06/12/17 23:06 ([facility]) 1 Q361D XX 06/11/17 19:45 06/12/17 00:06 (Chlorhexidine 2% Cloth) 3 pack Taper DAILY@04 TOP 06/12/17 04:00 06/08/18 03:59 (Chlorhexidine 2% Cloth) 3 pack UNSCH PRN TOP 06/11/17 19:45 (Leela-Colace) 1 tab BID PO 06/11/17 21:00 06/12/17 09:13 (Milk Of Magnesia Liq) 30 ml Q12H PRN PO 06/11/17 19:45 (Senokot) 17.2 mg Q12H PRN PO 06/11/17 19:45 (Dulcolax Supp) 10 mg DAILY PRN RECTAL 06/11/17 19:45 (Lactulose Liq) 30 ml DAILY PRN PO 06/11/17 19:45 (Ativan Inj) 1 mg Q15M PRN IV PUSH 06/11/17 20:30 06/13/17 09:22 (Albuterol Neb) 2.5 mg Q2HR NEB PRN NEB 06/12/17 08:45 (Dilaudid) 1 mg Q4H PRN PO 06/12/17 15:00 06/13/17 04:27 (Pill Splitter) 1 ea UNSCH PRN OTHER 06/12/17 15:15 (Ferrous Sulfate) 325 mg BID@12,17 PO 06/13/17 12:00 Lines PIV with no e/o infection Past Medical History Hepatitis C bipolar disorder Recent history of being treated for endocarditis with several organisms one of which was MRSA. Recent history of being treated for discitis, possible epidural abscess. (Nanda Barrera) Allergies: Coded Allergies: haloperidol (Verified Allergy, Severe, LOST MUSCLE CONTROL, 06/11/17) Objective . Vital Signs Date Time Temp Pulse Resp B/P (MAP) Pulse Ox O2 Delivery O2 Flow Rate FiO2 06/13/17 08:00 97.4 57 17 92/50 (64) 96 06/13/17 00:00 97.2 68 16 92/58 (69) 100 06/12/17 20:00 97.8 79 16 90/53 (65) 100 06/12/17 17:41 97.5 75 17 101/55 (70) 100 06/12/17 16:00 80 06/12/17 16:00 98.8 82 24 96/65 (75) 100 06/12/17 14:00 59 06/12/17 12:00 98.7 70 22 95/56 (69) 100 06/12/17 12:00 70 . Laboratory Tests Test 06/12/17 08:35 White Blood Count 6.1 TH/MM3 Red Blood Count 3.63 MIL/MM3 Hemoglobin 8.3 GM/DL Hematocrit 26.2 % Mean Corpuscular Volume 72.0 FL Mean Corpuscular Hemoglobin 22.8 PG Mean Corpuscular Hemoglobin Concent 31.7 % Red Cell Distribution Width 22.8 % Platelet Count 294 TH/MM3 Mean Platelet Volume 7.1 FL Neutrophils (%) (Auto) 51.7 % Lymphocytes (%) (Auto) 31.8 % Monocytes (%) (Auto) 7.6 % Eosinophils (%) (Auto) 7.8 % Basophils (%) (Auto) 1.1 % Neutrophils # (Auto) 3.1 TH/MM3 Lymphocytes # (Auto) 1.9 TH/MM3 Monocytes # (Auto) 0.5 TH/MM3 Eosinophils # (Auto) 0.5 TH/MM3 Basophils # (Auto) 0.1 TH/MM3 CBC Comment DIFF FINAL Differential Comment Erythrocyte Sedimentation Rate 47 mm/hr Laboratory Tests Test 06/12/17 08:35 06/12/17 16:15 Blood Urea Nitrogen 10 MG/DL Creatinine 0.58 MG/DL Random Glucose 75 MG/DL Total Protein 6.0 GM/DL Albumin 2.4 GM/DL Calcium Level 8.2 MG/DL Alkaline Phosphatase 41 U/L Aspartate Amino Transf (AST/SGOT) 10 U/L Alanine Aminotransferase (ALT/SGPT) 16 U/L Total Bilirubin 0.4 MG/DL Sodium Level 142 MEQ/L Potassium Level 3.1 MEQ/L Chloride Level 110 MEQ/L Carbon Dioxide Level 22.2 MEQ/L Anion Gap 10 MEQ/L Estimat Glomerular Filtration Rate 123 ML/MIN Phosphorus Level 2.7 MG/DL Magnesium Level 2.0 MG/DL Total Creatine Kinase 30 U/L 34 U/L Human Chorionic Gonadotropin, Quant LESS THAN 1 MIU/ML Iron Level 18 MCG/DL Total Iron Binding Capacity 314 MCG/DL Percent Iron Saturation 5.7 % C-Reactive Protein 5.76 MG/DL Vitamin B12 Level 569 PG/ML Free Thyroxine 1.19 NG/DL Thyroid Stimulating Hormone 3rd Gen 1.480 uIU/ML Microbiology Date/Time Source Procedure Growth Status 06/12/17 16:15 Blood Peripheral Aerobic Blood Culture - Preliminary NO GROWTH IN 1 DAY Resulted 06/12/17 16:15 Blood Peripheral Anaerobic Blood Culture - Preliminary NO GROWTH IN 1 DAY Resulted 06/12/17 08:35 Blood Peripheral Aerobic Blood Culture - Preliminary NO GROWTH IN 1 DAY Resulted 06/12/17 08:35 Blood Peripheral Anaerobic Blood Culture - Preliminary NO GROWTH IN 1 DAY Resulted 06/11/17 20:28 Urine Clean Catch Urine Culture - Preliminary Gram Negative Igor Resulted Imaging Last Impressions Thoracic Spine MRI 06/11/17 0000 Signed Impressions: Service Date/Time: Sunday, June 11, 2017 20:58 - CONCLUSION: Small enhancing collection or mass directly posterior to the spinous process of L1 within the deep subcutaneous tissues measuring 2.2 x 2.2 x 3.0 cm. Robel Gregorio MD Lumbar Spine MRI 06/11/17 Signed Impressions: Service Date/Time: Sunday, June 11, 2017 20:58 - CONCLUSION: 1. Small enhancing collection or mass directly posterior to the spinous process of L1 within the deep subcutaneous tissues measuring 2.2 x 2.2 x 2.0 cm. 2. Moderate bilateral foraminal narrowing at L5-L6. 3. Degenerative disc disease L5-L6 and L6-S1. Robel Gregorio MD Cervical Spine MRI 06/11/17 Signed Impressions: Service Date/Time: Sunday, June 11, 2017 20:58 - CONCLUSION: 1. No abnormal enhancing mass or collection within cervical spine. 2. Very minimal diffuse disc bulges at C4-5, C5-6 and C6-7. Robel Gregorio MD Physical Exam GENERAL: This is a well-nourished, well-developed female patient, in no apparent distress. Lethargic s/p Ativan dose. Lying on stretcher in room. Male dentist/owner at her bedside. SKIN: No rashes, ecchymoses or lesions. Cool and dry. HEAD: Atraumatic. Normocephalic. No temporal or scalp tenderness. EYES: Pupils equal round and reactive. Extraocular motions intact. No scleral icterus. No injection or drainage. ENT: Nose without bleeding, purulent drainage or septal hematoma. Throat without erythema, tonsillar hypertrophy or exudate. Uvula midline. Airway patent. NECK: Trachea midline. Supple, nontender, no meningeal signs. CARDIOVASCULAR: Regular rate and rhythm without murmurs, gallops, or rubs. RESPIRATORY: Clear to auscultation. Breath sounds equal bilaterally. No wheezes , rales, or rhonchi. GASTROINTESTINAL: Abdomen soft, non-tender, nondistended. MUSCULOSKELETAL: Extremities without clubbing, cyanosis, or edema. No joint tenderness, effusion, or edema noted. No calf tenderness. NEUROLOGICAL: Lethargic s/p Ativan dose. Able to answer questions appropriately. Psych cooperative and calm IV line sites with no evidence of infection. (Nanda Barrera) Assessment & Plan Remarks ASSESSMENT: Self-reported history of fever Self-reported history of urinary incontinence Recent history of being treated for endocarditis with vancomycin IV as well as for possible epidural abscess Hx of MSSA and MRSA bacteremia - patient completed 6 weeks of IV treatment at previous facility MRI with abnormality suggestive of possible abscess -evaluated by Dr. Monge - lumbar soft tissue subcutaneous mass which enhances but this not involving the spine and obviously not the reason for current symptoms. She does not have any epidural abscess or indication for any neurosurgical intervention. The lumbar soft tissue subcutaneous mass can be addressed on an elective basis by a local general surgeon where she resides. C/o BLE weakness -evaluated by Dr. Mendoza - normal neurologic exam. Her appearance of weakness in the legs really is just due to the pain from her back. History of intravenous drug abuse with Dilaudid GNR UTI Elevated CRP Back pain: Possibly from prior discitis unsure if there is a component of hypochondriasis. Possibly related to UTI. Recommendations Plan for IR guided bx of subcutaneous mass posterior to spinous process of L1 but cancelled per Dr. Sparks Follow up on culture results - BCX shows no growth x 1 day. UCX + GNR Start on po Cipro 500mg po BID x 3 days CRP elevated very minimally could be related to UTI Continue to monitor clinically Dw patient and significant other Dw Dr. Phillips Patient cleared for discharge to home from ID standpoint. Recommend patient present to closest ER if symptoms worsen. (Nanda Barrera) Remarks The exam, history, and the medical decision-making described in the above note were completed with the assistance of the mid-level provider. I reviewed and agree with the findings presented. I attest that I had a ador-ce-wdtn encounter with the patient on the same day, and personally performed and documented my assessment and findings in the medical record. Dw IR: no plans for drainage. Surgery no plans for surgical intervention Patient has been treated for 6 weeks of IV antibiotics. appears comfortable and exaggerates symptoms when walking in. When examined from outside room appears to be active but then walking in room is moaning in pain. Urine Cx with GNR Will discharge on oral cipro. Follow up with PCP. Counseled if symptoms of cord compression, sepsis to go to nearest emergency room Blood cultures negative no ECHO needed. dw . Will sign off please call back if any change in clinical condition or questions (Shala Cali MD) Nanda Barrera June 13, 2017 11:38 Shala Cali MD June 13, 2017 13:30
[2017-06-13 12:00] VITALS: BP 95/52; PULSE 67; RESP 17; TEMP 97.4; O2SAT 100
[2017-06-13] MEDS: SODIUM CHLORIDE 0.9% FLUSH 10 ML FLUSH IV FLUSH SCH ×2 (12:05→22:03)
[2017-06-13] MEDS: FERROUS SULFATE 325 MG (65 MG ELEMENTAL IRON) TAB PO SCH ×2 (12:06→18:23)
[2017-06-13] MEDS ORDERED: CIPR-9 PO (13:15)
--- NOTE | 2017-06-13 13:26 | HHI.PR ---
Subjective Remarks awake and alert, no fever or chills she denies any acute pain no leg pain no back discomfort no nausea or vomiting no hematuria slight urgency Objective Vitals Vital Signs Date Time Temp Pulse Resp B/P (MAP) Pulse Ox O2 Delivery O2 Flow Rate FiO2 06/13/17 12:00 97.4 67 17 95/52 (66) 100 06/13/17 08:00 97.4 57 17 92/50 (64) 96 06/13/17 00:00 97.2 68 16 92/58 (69) 100 06/12/17 20:00 97.8 79 16 90/53 (65) 100 06/12/17 17:41 97.5 75 17 101/55 (70) 100 06/12/17 16:00 80 06/12/17 16:00 98.8 82 24 96/65 (75) 100 06/12/17 14:00 59 I/O 06/12/17 06/12/17 06/12/17 06/13/17 06/13/17 06/13/17 07:00 15:00 23:00 07:00 15:00 23:00 Intake Total 240 ml 605 ml 240 ml Output Total 0 ml Balance 240 ml 605 ml 240 ml Intake Oral 240 ml 480 ml 240 ml IV Total 125 ml Output Stool Total 0 ml # Voids 1 2 3 Result Diagram: 06/12/17 0835 06/12/17 0835 Imaging Last Impressions Thoracic Spine MRI 06/11/17 Signed Impressions: Service Date/Time: Sunday, June 11, 2017 20:58 - CONCLUSION: Small enhancing collection or mass directly posterior to the spinous process of L1 within the deep subcutaneous tissues measuring 2.2 x 2.2 x 3.0 cm. Robel Gregorio MD Lumbar Spine MRI 06/11/17 Signed Impressions: Service Date/Time: Sunday, June 11, 2017 20:58 - CONCLUSION: 1. Small enhancing collection or mass directly posterior to the spinous process of L1 within the deep subcutaneous tissues measuring 2.2 x 2.2 x 2.0 cm. 2. Moderate bilateral foraminal narrowing at L5-L6. 3. Degenerative disc disease L5-L6 and L6-S1. Robel Gregorio MD Cervical Spine MRI 06/11/17 Signed Impressions: Service Date/Time: Sunday, June 11, 2017 20:58 - CONCLUSION: 1. No abnormal enhancing mass or collection within cervical spine. 2. Very minimal diffuse disc bulges at C4-5, C5-6 and C6-7. Robel Gregorio MD Objective Remarks awake and alert oriented x 3 anicteric lungs- no rales regular rhythm abdomen soft, good bowel sounds mass- soft tissue- around t11 area, extremities no edema, no calf swelling tenderness A/P Assessment and Plan IVDU Cocaine abuse Possible mass vs fluid collection, subcutaneous, posterior to L1 Oxycodone/Dilaudid as needed for pain MRI of Spine demonstrates enhancing collection or mass posterior to L1 without extension into the vertebra or epidural space. The location of the abscess does not explain her reported weakness and could be related to functional disorder. Neurosurgery- saw patient- no plans for any procedure seen by ID Tobacco abuse Cessation counseling Bedside Echo no obvious vegetation UTI- - po ciprofloxacin x 3 days Infectious disease consultation. appreciated Iron deficiency anemia - start iron 325 mg po bid DC back to [place]- to assist PT eval and treat D/W PATIENT Staci Phillips MD June 13, 2017 13:26
[2017-06-13] MEDS ORDERED: FERR325T20 PO (13:31)
[2017-06-13] MEDS ORDERED: POTASSIUM BICARBONATE 25 MEQ EFFERVESCENT TAB PO ONE (13:45)
[2017-06-13] MEDS: CIPROFLOXACIN 500 MG TAB PO SCH ×2 (14:06→21:58)
[2017-06-13 16:00] VITALS: BP 94/53; PULSE 60; RESP 17; TEMP 97.6; O2SAT 99
[2017-06-13 20:00] VITALS: BP 105/55; PULSE 59; RESP 18; TEMP 97.8; O2SAT 97
[2017-06-13] MEDS ORDERED: POTASSIUM CHLORIDE 20 MEQ CONTROLLED RELEASE TAB PO ONE (21:00)
[2017-06-13] MEDS ORDERED: LORazepam 1 MG TAB PO ONE (23:15)
[2017-06-14 00:15] VITALS: BP 109/59; PULSE 61; RESP 18; TEMP 98.3; O2SAT 96
[2017-06-14] MEDS: HYDROmorphone HCL 2 MG TAB PO PRN ×2 (03:57→08:21)
[2017-06-14 08:00] VITALS: BP 105/58; PULSE 57; RESP 16; TEMP 98.2; O2SAT 98
[2017-06-14] MEDS: FAMOTIDINE 20 MG TAB PO SCH (08:00)
[2017-06-14] MEDS: DOCUSATE SODIUM 50 MG/SENNA 8.6 MG TAB PO SCH (08:00)
[2017-06-14] MEDS: CIPROFLOXACIN 500 MG TAB PO SCH (08:00)
[2017-06-14] MEDS: SODIUM CHLORIDE 0.9% FLUSH 10 ML FLUSH IV FLUSH SCH (08:02)
--- NOTE | 2017-06-14 09:15 | HHI.PR ---
Subjective Remarks chronic back pain- requesting for pain meds no dysria Objective Vitals Vital Signs Date Time Temp Pulse Resp B/P (MAP) Pulse Ox O2 Delivery O2 Flow Rate FiO2 06/14/17 08:00 98.2 57 16 105/58 (74) 98 06/14/17 00:15 98.3 61 18 109/59 (76) 96 06/13/17 20:00 97.8 59 18 105/55 (72) 97 06/13/17 16:00 97.6 60 17 94/53 (67) 99 06/13/17 12:00 97.4 67 17 95/52 (66) 100 I/O 06/13/17 06/13/17 06/13/17 06/14/17 06/14/17 06/14/17 07:00 15:00 23:00 07:00 15:00 23:00 Intake Total 240 ml 780 ml Balance 240 ml 780 ml Intake Oral 240 ml 780 ml # Voids 3 2 # Bowel Movements 0 Result Diagram: 06/12/17 0835 06/12/1735 Imaging Last Impressions Thoracic Spine MRI 06/11/17 Signed Impressions: Service Date/Time: Sunday, June 11, 2017 20:58 - CONCLUSION: Small enhancing collection or mass directly posterior to the spinous process of L1 within the deep subcutaneous tissues measuring 2.2 x 2.2 x 3.0 cm. Robel Gregorio MD Lumbar Spine MRI 06/11/17 Signed Impressions: Service Date/Time: Sunday, June 11, 2017 20:58 - CONCLUSION: 1. Small enhancing collection or mass directly posterior to the spinous process of L1 within the deep subcutaneous tissues measuring 2.2 x 2.2 x 2.0 cm. 2. Moderate bilateral foraminal narrowing at L5-L6. 3. Degenerative disc disease L5-L6 and L6-S1. Robel Gregorio MD Cervical Spine MRI 06/11/17 Signed Impressions: Service Date/Time: Sunday, June 11, 2017 20:58 - CONCLUSION: 1. No abnormal enhancing mass or collection within cervical spine. 2. Very minimal diffuse disc bulges at C4-5, C5-6 and C6-7. Robel Gregorio MD Objective Remarks awake and alert oriented x 3 anicteric lungs- no rales regular rhythm abdomen soft, good bowel sounds mass- soft tissue- around t11 area, extremities no edema, no calf swelling tenderness A/P Problem List: (1) Fever ICD Code: R50.9 - Fever, unspecified Status: Acute (2) Cocaine abuse ICD Code: F14.10 - Cocaine abuse, uncomplicated Status: Chronic (3) Tobacco abuse ICD Code: Z72.0 - Tobacco use Status: Chronic (4) Abscess of lower back ICD Code: L02.212 - Cutaneous abscess of back [any part, except buttock] Status: Chronic (5) IVDU (intravenous drug user) ICD Code: F19.90 - Other psychoactive substance use, unspecified, uncomplicated Status: Chronic (6) UTI (urinary tract infection) ICD Code: N39.0 - Urinary tract infection, site not specified Status: Acute Assessment and Plan IVDU Cocaine abuse Possible mass vs fluid collection, subcutaneous, posterior to L1 Oxycodone/Dilaudid as needed for pain MRI of Spine demonstrates enhancing collection or mass posterior to L1 without extension into the vertebra or epidural space. The location of the abscess does not explain her reported weakness and could be related to functional disorder. Neurosurgery- saw patient- no plans for any procedure seen by ID Tobacco abuse Cessation counseling Bedside Echo no obvious vegetation UTI- - po ciprofloxacin x 3 days Infectious disease consultation. appreciated Iron deficiency anemia - start iron 325 mg po bid DC back to [facility]- to assist PT eval and treat D/W PATIENT home today- ff up with PCP- in Staci Mortensen MD June 14, 2017 09:15
[2017-06-14] MEDS ORDERED: OXYC1TAB63 PO (09:17)
[2017-06-14] MEDS ORDERED: POTA10TA2 PO (09:19)
[2017-06-14] MEDS ORDERED: POTASSIUM CHLORIDE 10 MEQ CONTROLLED RELEASE TAB PO ONE (09:30)
[2017-06-14] MEDS: FERROUS SULFATE 325 MG (65 MG ELEMENTAL IRON) TAB PO SCH (12:00)
== END 2017-06-14 12:25 | disposition home or self-care (01) | DRG 603 ==
LOC: N03B 18:49 → N07B 06-12 17:30
PROVIDERS: ADMIT Internal Medicine; ATTEND Internal Medicine
DX: L02.212 Cutaneous abscess of back [any part, except buttock and flank] (principal); N39.0 Urinary tract infection, site not specified; E87.6 Hypokalemia; D50.9 Iron deficiency anemia, unspecified; F14.10 Cocaine abuse, uncomplicated; E66.9 Obesity, unspecified; N76.0 Acute vaginitis; B96.89 Other specified bacterial agents as the cause of diseases classified elsewhere; M51.36 Other intervertebral disc degeneration, lumbar region; M51.37 Other intervertebral disc degeneration, lumbosacral region; F31.9 Bipolar disorder, unspecified; Z68.33 Body mass index [BMI] 33.0-33.9, adult; Z86.14 Personal history of Methicillin resistant Staphylococcus aureus infection; Z87.891 Personal history of nicotine dependence
CPT/HCPCS: 72156; 72157; 72158; 76937; 80053; 81001; 82550; 82607; 83540; 83550; 83735; 83921; 84100; 84132; 84439; 84443; 84702; 85025; 85652; 86038; 86140; 86592; 87040; 87077; 87086; 87186; 87641; 93005; A9579; J0692; J0696; J1170; J2060; J2405; J3370; J7040